=== PATIENT | female | born 1990 | race Caucasian/White ===

== ENCOUNTER 2020-12-07 08:35 | Outpatient (CLI) | payer OTHER, SELFPAY ==
[2020-12-07 09:04] LABS: Basophils Percent Auto 0.4 % (0.2-1.2); Eosinophils Absolute Auto 0.1 K/mm3 (0-0.3); Eosinophils Percent Auto 2.2 % (0-4.4); Hematocrit 44.3 % (37.0-47.0); Hemoglobin 14.1 g/dL (12.0-15.0); Immature Granulocyte Absolute 0.02 K/mm3 (0.00-0.031); Immature Granulocyte Percent A 0.4 % (0-0.5); Lymphocytes Absolute Auto 1.02 K/mm3 (0.9-3.2); Lymphocytes Percent Auto 22.7 % (18.3-44.2); Mean Corpuscular HGB Conc 31.8 g/dl (32-36); Mean Corpuscular Hemoglobin 27.3 pg (26-34); Mean Corpuscular Volume 85.9 fl (80-100); Mean Platelet Volume 10.8 fl (7.4-10.4); Monocytes Absolute Auto 0.5 K/mm3 (0.1-0.6); Neutrophils Absolute Auto 2.9 K/mm3 (1.3-6.7); Neutrophils Percent Auto 64.3 % (45.5-73.1); Platelet Count Result 276 k/mm3 (150-375); Red Blood Count 5.16 M/mm3 (4.2-5.4); Red Cell Distribution Width 13.4 % (11.5-14.5); White Blood Count 4.5 K/mm3 (4.5-10.0)
[2020-12-07 09:21] LABS: Alanine Aminotransferase 17 U/L (4-35); Albumin Level 4.6 g/dL (3.5-5.1); Alkaline Phosphatase 71 U/L (38-126); Anion Gap 6 mmol/L (8-16); Aspartate Amino Transferase 24 U/L (14-36); Bilirubin,Total 0.5 mg/dL (0.2-1.3); Blood Urea Nitrogen 8 mg/dL (7-17); Calcium 9.2 mg/dL (8.4-10.2); Carbon Dioxide 30 mmol/L (22-30); Chloride 104 mmol/L (98-107); Estimated Glomerular Filt Rate > 60; Glucose 98 mg/dL (65-105); Potassium 3.8 mmol/L (3.4-5.0); Sodium 140 mmol/L (137-145)
== END 2020-12-07 08:36 | disposition home or self-care (01) ==
PROVIDERS: PCP Family Medicine; Visit Provider Family Medicine
DX: R53.83 Other fatigue (principal)
CPT/HCPCS: 36415; 80053; 85025

== ENCOUNTER 2023-01-17 08:46 | Emergency (ER) | payer OTHER, SELFPAY ==
[2023-01-17 09:30] VITALS: BP 109/60; PULSE 97; RESP 18; TEMP 36.8; O2SAT 100
[2023-01-17] MEDS: diphenhydrAMINE HCl INJ 50 MG/ML VIAL 25 MG IV PUSH (13:53)
[2023-01-17] MEDS: FAMOTIDINE 20 MG/2 ML VIAL IV PUSH (13:54)
[2023-01-17] MEDS: ONDANSETRON INJ 4 MG/2 ML VIAL IV PUSH (13:55)
[2023-01-17] MEDS: SODIUM CHLORIDE 0.9% IV 1,000 ML 999 ML IV CONT (13:55)
[2023-01-17] MEDS: methylPREDNISolone SOD SUCC 125 MG VIAL IV PUSH (13:55)
--- NOTE | 2023-01-17 14:13 | PC.NURSE ---
patient refused to do bedside test as she is currently on menses
[2023-01-17 14:16] VITALS: BP 107/62; PULSE 74; RESP 16; O2SAT 100
--- NOTE | 2023-01-17 14:29 | ED.SKABFB ---
HPI - Skin/Abscess/Foreign Bdy General Chief complaint: Skin/Abscess/Foreign Body <Claudia Gaytan PA-C - Last Filed: 01/17/23 19:40> Stated complaint: rash <Claudia Gaytan PA-C - Last Filed: 01/17/23 19:40> History of Present Illness HPI narrative: 32-year-old female reports for evaluation of a diffuse itchy rash that started last night. Patient states she had a similar rash about 3 to 4 years ago, was seen in the emergency department 3 days in a row and was given a cocktail . States she later followed up with an exhibits manager who did a lot of testing and did not find a reason for the rash. States she has not had this rash in about 3.5 years however it came back last night. She is reporting fluid sensation in her right ear. She denies new detergents, soaps, clothes, medications, foods or other new exposures. She denies drainage or sloughing of her skin. Denies mucosal involvement, fevers, abdominal pain, nausea, vomiting, diarrhea, chest pain or shortness of breath. <Claudia Gaytan PA-C - Last Filed: 01/17/23 19:40> Related Data Allergies/Adverse reactions: Allergies Allergy/AdvReac Type Severity Reaction Status Date / Time ibuprofen [From Advil] Allergy Mild hives Verified 01/17/23 11:01 hydrocodone AdvReac Mild Nausea Verified 01/17/23 13:22 <Claudia Gaytan PA-C - Last Filed: 01/17/23 19:40> Review of Systems Review of Systems: CONSTITUTIONAL: Denies fever, chills EYES: Denies visual changes, redness, or discharge. ENT: See HPI CARDIOVASCULAR: Denies chest pain, palpitations, or edema. RESPIRATORY: Denies cough or dyspnea. GASTROINTESTINAL: Denies abdominal pain, nausea, vomiting, or diarrhea. GENITOURINARY: Denies dysuria or hematuria. SKIN: See HPI MUSCULOSKELETAL: Denies back pain, joint pain, or myalgia. NEUROLOGIC: Denies headache, numbness, dizziness, or weakness. PSYCHIATRIC: Denies anxiety or depression. <Claudia Gaytan PA-C - Last Filed: 01/17/23 19:40> [facility] Family History Family History: Family History Mother Family history of malignant neoplasm of cervix Family history of malignant neoplasm of uterus <Claudia Gaytan PA-C - Last Filed: 01/17/23 19:40> Social History Social History: Social History Smoking status: Never smoker Second hand tobacco smoke exposure: No Alcohol intake: never Substance use: never Substance use type: does not use Living arrangements: with family Occupation/Education: occupation Gender identity (if verbalized by the patient): Female Sexual Orientation (if Verbalized by the Patient): Straight or Heterosexual <Claudia Gaytan PA-C - Last Filed: 01/17/23 19:40> Exam Narrative: GENERAL: Well-appearing, in no acute distress. HEAD: Normocephalic EYES: PERRLA ENT: Nares clear. Mucous membranes moist. Oropharynx without tonsillar hypertrophy exudate or other lesions. Right TM is bulging without erythema or injection. Left TM barber nonbulging. NECK: Supple. CHEST: No respiratory distress. Clear to auscultation, no adventitious breath sounds. HEART: Regular rate and rhythm. No murmur heard. Normal peripheral pulses. ABDOMEN: Soft, nontender, normal active bowel sounds. EXTREMITIES: Normal range of motion. No edema. SKIN: Diffuse raised erythematous macules with central clearing over patient's scalp, back, chest, abdomen, arms, axilla, legs. Negative Nikolsky sign. No drainage or tenderness. NEURO: No focal deficits. Alert and oriented x3. PSYCH: Normal mood and affect. <Claudia Gaytan PA-C - Last Filed: 01/17/23 19:40> Course DOCUMENT IMAGE TECHNICIAN/PA Physician Supervision For this patient encounter, I reviewed the DOCUMENT IMAGE TECHNICIAN or PA documentation, treatment plan, and I was responsible for the medical decision making; and I had [id number] time with this patient. <Helio Neff MD - Last Filed:
== END 2023-01-17 14:48 | disposition home or self-care (01) ==
PROVIDERS: Emergency Provider Physician Assistant; PCP Family Medicine
DX: L51.9 Erythema multiforme, unspecified (principal)
CPT/HCPCS: 96361; 96374; 96375; 99284; J1200; J2405; J2930; J7030

== ENCOUNTER 2023-01-20 00:07 | Emergency (ER) | payer OTHER, SELFPAY ==
[2023-01-20] VITALS (38 sets, daily range): BP systolic 102–117; BP diastolic 66–92; PULSE 95–122; RESP 15–30; TEMP 36.5–36.8; O2SAT 95–100
--- NOTE | ~2023-01-20 | CT_ITS ---
EXAMINATION: CT abdomen pelvis w con DATE: 01/20/2023 01:50 INDICATION: Low abdominal pain. Nausea, vomiting, and diarrhea. TECHNIQUE: Computed tomography (CT) of the abdomen and pelvis was performed with 100 mL Omnipaque 350 intravenous contrast. Automated exposure control and iterative reconstruction technique were employe d. The dose-length product was 402.42 mGy-cm. COMPARISON: CT abdomen and pelvis 07/09/2013 FINDINGS: The visualized portions of the lung bases are clear without pneumonia. There is a trace rig ht pleural effusion. The heart size is normal. No pericardial effusion. The liver, gallbladder, splee n, pancreas, adrenal glands, and kidneys are normal. There is liquid stool in the colon correlating w ith the symptom of diarrhea. There are changes of appendectomy. There is wall thickening of the dista l half of the small bowel. There is a small volume of ascites. There are no pathologically enlarged l ymph nodes. There is mild lumbar spondylosis. IMPRESSION: 1. Wall thickening of the distal half of small bowel, consistent with enteritis. 2. Small volume of ascites. Reviewed, dictated and finalized at location A. IMPRESSION: 1. Wall thickening of the distal half of small bowel, consistent with enteritis . 2. Small volume of ascites.
--- NOTE | 2023-01-20 00:37 | ED.GENADULT ---
HPI - General Adult General Chief complaint: Nausea/Vomiting/Diarrhea <Casandra Dunaway PA-C - Last Filed: 01/20/23 11:48> Stated complaint: hives worse, nausea/vomit/diarrhea <CAMMY Pérez Last Filed: 01/20/23 11:48> Time Seen by Provider: 01/20/23 00:28 <CAMMY Pérez Last Filed: 01/20/23 11:48> History of Present Illness HPI narrative: Patient is a 32-year-old female with history of appendicitis s/p appendectomy here for evaluation of crampy abdominal pain, nausea vomiting and diarrhea x2 days. Patient states that her symptoms started while she started taking Augmentin for an ear infection. States that she has been unable to tolerate any of her medicines or any p.o. No suspicious meals, sick contacts, fevers, chills, dysuria, urgency or frequency. She is currently being treated for erythema multiforme with steroids, Benadryl and Pepcid but was able to keep down her medicines for the past 2 days, therefore her rash looks worse and has become more pruritic. She was referred to an senior managing director but has not yet made an appointment. Was previously improving on steroids and Benadryl. No involvement of the mucous membranes. <CAMMY Pérez Last Filed: 01/20/23 11:48> Related Data Allergies/adverse reactions: Allergies Allergy/AdvReac Type Severity Reaction Status Date / Time ibuprofen [From Advil] Allergy Mild hives Verified 01/18/23 16:51 hydrocodone AdvReac Mild Nausea Verified 01/18/23 16:51 <CAMMY Pérez Last Filed: 01/20/23 11:48> Review of Systems Review of Systems: Gen.: Denies fevers or chills Eyes: Denies eye pain or visual change ENT: Denies congestion Respiratory: Denies shortness of breath or cough CV: Denies chest pain or palpitations GI: Reports abdominal pain, nausea vomiting diarrhea denies burning, urgency, frequency or hematuria Musculoskeletal: Denies back pain or muscle pain Neuro: Denies numbness, tingling, weakness or focal weakness Skin: Reports rash Except as documented, all other systems reviewed and negative <Casandra Dunaway PA-C - Last Filed: 01/20/23 11:48> [facility] Family History Family History: Family History Mother Family history of malignant neoplasm of cervix Family history of malignant neoplasm of uterus <Casandra Dunaway PA-C - Last Filed: 01/20/23 11:48> Social History Social History: Social History Smoking status: Never smoker Second hand tobacco smoke exposure: No Alcohol intake: never Substance use: never Substance use type: does not use Living arrangements: with family Occupation/Education: occupation Gender identity (if verbalized by the patient): Female Sexual Orientation (if Verbalized by the Patient): Straight or Heterosexual <Casandra Dunaway PA-C - Last Filed: 01/20/23 11:48> Exam Narrative: APPEARANCE: Uncomfortable appearing, actively vomiting during exam Head: Normocephalic and atraumatic. EYES: PERRLA/EOMI, conjunctivae clear NOSE: No nasal drainage EARS: External ear normal in appearance THROAT: Oropharynx is clear. Mucous membranes are moist. NECK: Supple. No adenopathy, no masses. RESPIRATORY: Airway patent, respirations nonlabored. Clear to auscultation bilaterally, no rales, rhonchi, wheezing. CARDIOVASCULAR: Regular rate and rhythm without murmurs, rubs, or gallops. ABDOMINAL: no abdominal tenderness on exam MUSCULOSKELETAL: Extremities are warm and well-perfused. Moves all extremities well. No edema. NEURO: Normal speech. No focal neurologic deficits. SKIN: There is symmetric macular erythematous flat rashes with central clearing to the bilateral AC fossa's, face, trunk and legs. No lesions in the mouth or eyes. Negative Nikolsky sign. PSYCHIATRIC: Normal affect/mood. <CAMMY Pérez
[2023-01-20 00:51] LABS: Basophils Percent Auto 0.1 % (0.2-1.2); Eosinophils Percent Auto 0.1 % (0-4.4); Hematocrit 48.5 % (37.0-47.0); Hemoglobin 15.8 g/dL (12.0-15.0); Immature Granulocyte Absolute 0.05 K/mm3 (0.00-0.031); Immature Granulocyte Percent A 0.3 % (0-0.5); Lymphocytes Absolute Auto 1.34 K/mm3 (0.9-3.2); Lymphocytes Percent Auto 8.4 % (18.3-44.2); Mean Corpuscular HGB Conc 32.6 g/dl (32-36); Mean Corpuscular Hemoglobin 27.1 pg (26-34); Mean Platelet Volume 10.2 fl (7.4-10.4); Monocytes Absolute Auto 0.9 K/mm3 (0.1-0.6); Monocytes Percent Auto 5.4 % (2.6-8.5); Neutrophils Absolute Auto 13.7 K/mm3 (1.3-6.7); Neutrophils Percent Auto 85.7 % (45.5-73.1); Platelet Count Result 513 k/mm3 (150-375); Red Blood Count 5.84 M/mm3 (4.2-5.4); Red Cell Distribution Width 13.8 % (11.5-14.5)
[2023-01-20] MEDS: SODIUM CHLORIDE 0.9% IV 1,000 ML 999 ML IV CONT ×2 (00:52→01:48)
[2023-01-20] MEDS: ONDANSETRON INJ 4 MG/2 ML VIAL IV PUSH (00:53)
[2023-01-20] MEDS: diphenhydrAMINE HCl INJ 50 MG/ML VIAL 25 MG IV PUSH (00:54)
[2023-01-20] MEDS: FAMOTIDINE 20 MG/2 ML VIAL IV PUSH (00:55)
[2023-01-20 01:01] LABS: Alanine Aminotransferase 22 U/L (6-35); Albumin Level 4.6 g/dL (3.5-5.1); Alkaline Phosphatase 79 U/L (38-126); Anion Gap 9 mmol/L (8-16); Aspartate Amino Transferase 23 U/L (14-36); Bilirubin,Total 0.9 mg/dL (0.2-1.3); Blood Urea Nitrogen 14 mg/dL (7-17); Calcium 8.8 mg/dL (8.4-10.2); Carbon Dioxide 33 mmol/L (22-30); Chloride 100 mmol/L (98-107); Estimated CRCL calculation 105 ml/min; Estimated Glomerular Filt Rate > 60; Glucose 135 mg/dL (65-110); Lipase 91 U/L (23-300); Sodium 142 mmol/L (137-145)
[2023-01-20 01:17] LABS: Appearance Urine Cloudy (Clear); Bacteria Urine 1+ /hpf; Bilirubin Urine Negative (Negative); Blood Urine 2+ (Negative); Color Urine Dark Yellow (Yellow); Glucose Urine UA Negative (Negative); Ketones Urine 1+ mg/dL (Negative); Leukocyte Esterase Ur Negative LEU/UL (Negative); Need Manual Microscopic Reviewed; Nitrate Urine Negative (Negative); Protein Urine 2+ mg/dL (Negative); RBC Urine 0-2 /hpf (0-2); Squamous Epithelial Cell Urine Moderate /hpf (Few)
[2023-01-20 01:27] LABS: Add Urine Microscopic? YES
[2023-01-20 01:28] LABS: Magnesium 2.1 mg/dL (1.6-2.3)
[2023-01-20] MEDS: METOCLOPRAMIDE HCL INJ 10 MG/2 ML VIAL IV PUSH (01:28)
[2023-01-20] MEDS: KCL 20 MEQ/SW 100 ML 100 ML 50 MEQ IVPB (01:47)
[2023-01-20] MEDS: POTASSIUM CHLORIDE 20 MEQ PACKET (FOR LIQUID) PO (02:31)
[2023-01-20 02:47] LABS: Partial Thromboplastin Time 25.9 SECONDS (22.3-36.8)
== END 2023-01-20 04:28 | disposition home or self-care (01) ==
PROVIDERS: Emergency Provider Physician Assistant; PCP Family Medicine
DX: K52.9 Noninfective gastroenteritis and colitis, unspecified (principal)
CPT/HCPCS: 36415; 74177; 80053; 81001; 81025; 83690; 83735; 85025; 85610; 85730; 87086; 96361; 96365; 96366; 96367; 96375; 99284; A9270; J0131; J1200; J2405; J2765; J3480; J7030; Q9967

== ENCOUNTER 2024-03-05 15:55 | Outpatient (CLI) | payer OTHER, SELFPAY ==
--- NOTE | ~2024-03-05 | XR_ITS ---
EXAMINATION: XR finger 3rd LT min 2V DATE: 03/05/2024 16:12 INDICATION: Left hand third digit pain. TECHNIQUE: 4 views of left hand third digit were obtained. COMPARISON: None. FINDINGS: Alignment is normal. No fracture. There is mild osteoarthritis of third proximal interphala ngeal joint. There are soft tissue calcifications palmar to third proximal phalanx. IMPRESSION: 1. Soft tissue calcifications palmar to third proximal phalanx. 2. 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 Reviewed, dictated and finalized at location E.
== END 2024-03-05 15:56 ==
PROVIDERS: PCP Family Medicine; Visit Provider Family Medicine
DX: M19.042 Primary osteoarthritis, left hand (principal)
CPT/HCPCS: 73140